=== PATIENT | female | born 1990 | race Caucasian/White ===

== ENCOUNTER 2019-02-28 03:02 | Emergency (ER) | payer OTHER ==
[~2019-02-28] VITALS: Ht 160 cm; Wt 67.1 kg
[~2019-02-28 03:02] MED LIST: ACHD5005 PO; CEFU250S PO; DCS100C PO; IBP600T1 PO; LORA-404 PO; OMEP-10 PO; ONDN4T PO; PREN1TAB39 PO; ZLP10T PO
[2019-02-28] MEDS ORDERED: NS IV 1000 ML 1,000 ML IV ONE (03:38)
[2019-02-28 03:49] LABS: BASOPHILS % (AUTO) 0 % (0-10); EOSINOPHILS # (AUTO) 0.1 10^3/uL (0.0-0.3); EOSINOPHILS % (AUTO) 2 % (0-10); HEMATOCRIT 40 % (35-52); HEMOGLOBIN 13.3 G/DL (11.5-16.0); LYMPHOCYTES # (AUTO) 1.5 X 10^3 (1.0-4.0); LYMPHOCYTES % (AUTO) 28 % (12-44); MEAN CORPUSCULAR HEMOGLOBIN 28 PG (25-34); MEAN CORPUSCULAR HGB CONC 33 G/DL (32-36); MEAN CORPUSCULAR VOLUME 85 FL (80-99); MEAN PLATELET VOLUME 10.3 FL (7.4-10.4); MONOCYTES # (AUTO) 0.8 X 10^3 (0.0-1.0); MONOCYTES % (AUTO) 15 % (0-12); NEUTROPHILS # (AUTO) 2.9 X 10^3 (1.8-7.8); NEUTROPHILS % (AUTO) 55 % (42-75); PLATELET COUNT 182 10^3/uL (130-400); RED CELL DISTRIBUTION WIDTH 13.2 % (10.0-14.5); WHITE BLOOD COUNT 5.3 10^3/uL (4.3-11.0)
[2019-02-28 04:11] LABS: ALANINE AMINOTRANSFERASE 63 U/L (0-55); ALBUMIN 4.5 GM/DL (3.2-4.5); ALKALINE PHOSPHATASE 67 U/L (40-136); BILIRUBIN,TOTAL 0.2 MG/DL (0.1-1.0); BUN/CREATININE RATIO 12; CALCIUM 8.8 MG/DL (8.5-10.1); CARBON DIOXIDE 22 MMOL/L (21-32); CHLORIDE 107 MMOL/L (98-107); CREATININE SERUM 0.78 MG/DL (0.60-1.30); GFR ESTIMATED > 60; GLUCOSE 81 MG/DL (70-105); POTASSIUM 3.8 MMOL/L (3.6-5.0); SODIUM 140 MMOL/L (135-145); TOTAL PROTEIN 7.3 GM/DL (6.4-8.2)
[2019-02-28] MEDS ORDERED: KETOROLAC 30 MG/ML VIAL IVP ONE (05:15)
[2019-02-28] MEDS ORDERED: OSLT75C PO (05:15)
--- NOTE | 2019-02-28 05:16 | ED General ---
General Chief Complaint: Cough/Cold/Flu Symptoms Stated Complaint: COUGH,RUNNY NOSE,CONGESTION,SORE THROAT,EAR PAIN, Nursing Triage Note: C/O COUGH, RUNNY NOSE, SORE THROAT, COMGESTION, EAR PAIN SINCE YESTERDAY, DAUGHTER WAS DIAGNOSED WITH FLU B TWO DAYS AGO Nursing Sepsis Screen: No Definite Risk Source of Information: Patient Exam Limitations: No Limitations History of Present Illness Date Seen by Provider: Feb 28, 2019 Time Seen by Provider: 03:31 Initial Comments This 28-year-old young lady presents to the emergency room with 2 days of cough, runny nose, sore throat, congestion, and ear pain. Her daughter was diagnosed with influenza B 2 days ago. She would like to be assessed. She drank some alcohol to try to help with the symptoms. Allergies and Home Medications Allergies Coded Allergies: acetaminophen (Verified Allergy, Mild, 10/17/15) codeine (Verified Allergy, Mild, HIVES, 11/27/11) oxycodone (Verified Allergy, Mild, 10/17/15) Home Medications Cefuroxime Axetil 250 Mg/5 Ml Susp.recon, 250 MG PO BID Prescribed by: CLEMENTE GARCIA on 10/17/15411 Docusate Sodium 100 Mg Capsule, 100 MG PO BID, (Reported) Hydrocodone Bit/Acetaminophen 1 Each Tablet, 1 EACH PO Q 4 hours, (Reported) Ibuprofen 600 Mg Tab, 600 MG PO Q 6-8 hours PRN, (Reported) As needed for cramps. Lorazepam 0.5 Mg Tablet, 0.5 MG PO HS PRN for sleep Prescribed by: CLEMENTE GARCIA on 10/17/15 041 Oseltamivir Phosphate 75 Mg Cap, 75 MG PO BID Prescribed by: YIN JENKINS on 02/28/19 0515 Vits W-Ca,Fe,Fa(<1MG) 1 Each Tablet, 1 EACH PO DAILY, (Reported) Zolpidem Tartrate 10 Mg Tab, 10 MG PO HS, (Reported) Patient Home Medication List Home Medication List Reviewed: Yes Review of Systems Review of Systems Constitutional: see HPI EENTM: see HPI Respiratory: see HPI Cardiovascular: see HPI (tachycardia) Gastrointestinal: no symptoms reported Genitourinary: no symptoms reported : No Musculoskeletal: muscle pain Skin: no symptoms reported Psychiatric/Neurological: Headache Hematologic/Lymphatic: No Symptoms Reported Immunological/Allergic: no symptoms reported Past Dheyxrb-Vzietc-Uxbnqn Hx Past Med/Social Hx: Reviewed Nursing Past Med/Soc Hx Patient Social History Alcohol Use: Occasionally Uses Number of Drinks Today: 4 Alcohol Beverage of Choice: Beer Recreational Drug Use: No 2nd Hand Smoke Exposure: No Recent Foreign Travel: No Contact w/Someone Who Travel: No Recent Infectious Disease Expo: No Recent Hopitalizations: No Physical Abuse: No Sexual Abuse: No Mistreated: No Fear: No Past Medical History Surgeries: Yes Adenoidectomy, Tonsillectomy Respiratory: No Cardiac: No Neurological: No : No Last Menstrual Period: Jan 30, 2019 Reproductive Disorders: No Sexually Transmitted Disease: No Genitourinary: No Gastrointestinal: No Musculoskeletal: No Endocrine: No HEENT: No Cancer: No Psychosocial: No Integumentary: No Blood Disorders: Yes (anemia) Family Medical History No Pertinent Family Hx Physical Exam Vital Signs Vital Signs - First Documented 02/28/19 03:15 Temp 36.8 Pulse 120 Resp 20 B/P (MAP) 148/98 (115) Pulse Ox 100 O2 Delivery Room Air Capillary Refill : Less Than 3 Seconds Height, Weight, BMI Height: 5'6" Weight: 121lbs. oz. 54.145686vu; 26.00 BMI Method:Stated General Appearance: No Apparent Distress, WD/WN HEENT: PERRL/EOMI, TMs Normal, Normal ENT Inspection, Pharynx Normal Neck: Normal Inspection Respiratory: Lungs Clear, Normal Breath Sounds, No Accessory Muscle Use, No Respiratory Distress Cardiovascular: No Edema, No Murmur, Tachycardia Extremity: Normal Inspection, No Pedal Edema Neurologic/Psychiatric: Alert, Oriented x3, No Motor/Sensory Deficits, Normal Mood/Affect, online marketing coordinator II-XII Norm as Tested Skin: Normal Color, Warm/Dry Progress/Results/Core Measures Suspected Sepsis Recent Fever Within 48 Hours: No Infection Criteria Present: Suspected New Infection New/Unexplained Altered Menta: No Sepsis Screen: No Definite Risk SIRS Temperature: Pulse: 120 Respiratory Rate: 20 Laboratory Tests 02/28/19 03:35: White Blood Count 5.3 Blood Pressure 148 /98 Mean: 115 Laboratory Tests 02/28/19 03:35: Creatinine 0.78, Platelet Count 182, Total Bilirubin 0.2 Results/Orders Lab Results Laboratory Tests Test 02/28/19 03:35 Range/Units White Blood Count 5.3 4.3-11.0 10^3/uL Red Blood Count 4.73 4.35-5.85 10^6/uL Hemoglobin 13.3 11.5-16.0 G/DL Hematocrit 40 35-52 % Mean Corpuscular Volume 85 80-99 FL Mean Corpuscular Hemoglobin 28 25-34 PG Mean Corpuscular Hemoglobin Concent 33 32-36 G/DL Red Cell Distribution Width 13.2 10.0-14.5 % Platelet Count 182 130-400 10^3/uL Mean Platelet Volume 10.3 7.4-10.4 FL Neutrophils (%) (Auto) 55 42-75 % Lymphocytes (%) (Auto) 28 12-44 % Monocytes (%) (Auto) 15 H 0-12 % Eosinophils (%) (Auto) 2 0-10 % Basophils (%) (Auto) 0 0-10 % Neutrophils # (Auto) 2.9 1.8-7.8 X 10^3 Lymphocytes # (Auto) 1.5 1.0-4.0 X 10^3 Monocytes # (Auto) 0.8 0.0-1.0 X 10^3 Eosinophils # (Auto) 0.1 0.0-0.3 10^3/uL Basophils # (Auto) 0.0 0.0-0.1 10^3/uL Sodium Level 140 135-145 MMOL/L Potassium Level 3.8 3.6-5.0 MMOL/L Chloride Level 107 98-107 MMOL/L Carbon Dioxide Level 22 21-32 MMOL/L Anion Gap 11 5-14 MMOL/L Blood Urea Nitrogen 9 7-18 MG/DL Creatinine 0.78 0.60-1.30 MG/DL Estimat Glomerular Filtration Rate > 60 BUN/Creatinine Ratio 12 Glucose Level 81 70-105 MG/DL Calcium Level 8.8 8.5-10.1 MG/DL Corrected Calcium 8.4 L 8.5-10.1 MG/DL Total Bilirubin 0.2 0.1-1.0 MG/DL Aspartate Amino Transf (AST/SGOT) 41 H 5-34 U/L Alanine Aminotransferase (ALT/SGPT) 63 H 0-55 U/L Alkaline Phosphatase 67 40-136 U/L Total Protein 7.3 6.4-8.2 GM/DL Albumin 4.5 3.2-4.5 GM/DL Serum Test, Qualitative NEGATIVE NEGATIVE Serum Alcohol 19 H <10 MG/DL Micro Results Microbiology 02/28/19 Influenza Types A,B Antigen ([facility]) - Final, Complete My Orders Orders - YIN SUNSHINE MD Influenza A And B Antigens (02/28/19 03:31) Ns Iv 1000 Ml (Sodium Chloride 0.9%) (02/28/19 03:38) Alcohol (02/28/19 03:38) Cbc With Automated Diff (02/28/19 03:38) Comprehensive Metabolic Panel (02/28/19 03:38) Hcg,Qualitative Serum (02/28/19 03:38) Ketorolac Injection (Toradol Injection) (02/28/19 05:15) Medications Given in ED Vital Signs/I&O Capillary Refill : Less Than 3 Seconds Blood Pressure Mean: 115 Progress Note : Progress Note Patient tested positive for influenza B. IV fluids were administered due to tachycardia. Patient was offered Tamiflu but declined. She requested a prescription instead. Toradol was given for pain. Departure Impression Primary Impression: Influenza B Disposition: 01 HOME, SELF-CARE Condition: Improved Departure-Patient Inst. Decision time for Depature: 05:10 Referrals: JERRI ISAACS MD (PCP/Family) Primary Care Physician Patient Instructions: Flu, Adult (DC) Add. Discharge Instructions: Start Tamiflu as soon as possible and complete the entire 10 doses. Drink plenty of clear liquids. You may take Tylenol (acetaminophen) up to 1000 mg every 6 hours as needed and ibuprofen up to 600 mg every 6 hours as needed. Return to care if you have worsening symptoms. All discharge instructions reviewed with patient and/or family. Voiced understanding. Scripts Oseltamivir Phosphate (Tamiflu) 75 Mg Cap 75 MG PO BID, #10 CAP Prov: YIN SUNSHINE MD 02/28/19 YIN SUNSHINE MD Feb 28, 2019 05:16
[2019-02-28 05:17] VITALS: BP 129/89
== END 2019-02-28 05:26 | disposition home or self-care (01) ==
LOC: EDUNIT# 03:02 → ER 03:10
DX: J10.1 Influenza due to other identified influenza virus with other respiratory manifestations (principal); D64.9 Anemia, unspecified; Z88.6 Allergy status to analgesic agent; Z88.5 Allergy status to narcotic agent; Z90.89 Acquired absence of other organs; Z90.49 Acquired absence of other specified parts of digestive tract
CPT/HCPCS: 36415; 80053; 80320; 84703; 85025; 87804; 96374

== ENCOUNTER 2019-03-06 15:32 | Emergency (ER) | payer OTHER ==
[~2019-03-06] VITALS: Ht 160 cm; Wt 70.5 kg
[~2019-03-06 15:32] MED LIST changes: +OSLT75C PO
[2019-03-06] MEDS ORDERED: AZIT250T12 (15:40)
--- NOTE | 2019-03-06 15:43 | NUR ---
PT BECAME MORE ANXIOUS THE MORE I TALKED WITH HER. PT PLACED IN FT1 ET COOL CLOTH APPLIED TO HEAD.
[2019-03-06] MEDS ORDERED: MECLIZINE 25 MG (ANTIVERT) TAB PO ONE (15:45)
--- NOTE | 2019-03-06 15:52 | ED General ---
General Chief Complaint: Dizziness/Syncope Stated Complaint: DIZZINESS Nursing Triage Note: ARRIVED VIA AMB TO TRIAGE WITH COMPLAINTS OF DIZZINESS AND BEING LIGHT HEADED FOR 45 MINS. STATES HER HEAD FILLS FULL. JUST GOT OVER THE FLU AND IS ON A ABX FOR BRONCHITIS. Nursing Sepsis Screen: No Definite Risk Source of Information: Patient Exam Limitations: No Limitations History of Present Illness Date Seen by Provider: Mar 06, 2019 Time Seen by Provider: 15:50 Initial Comments ER per private vehicle with reports of dizziness and lightheaded for 45 minutes. States that her head feels full and with pressure. She is currently on antibiotics, states she was diagnosed with influenza B last week with associated bronchitis. She's had nasal drainage and congestion. This dizziness began suddenly onset about 15 minutes ago while at rest. She feels very anxious. She denies head pain just states that it feels "like pressure". Timing/Duration: 1-2 Days Severity: Moderate Associated Systoms: Nausea/Vomiting Allergies and Home Medications Allergies Coded Allergies: acetaminophen (Verified Allergy, Mild, 10/17/15) codeine (Verified Allergy, Mild, HIVES, 11/27/11) oxycodone (Verified Allergy, Mild, 10/17/15) Patient Home Medication List Home Medication List Reviewed: Yes Review of Systems Review of Systems Constitutional: see HPI; No chills, No fever Respiratory: see HPI, cough Cardiovascular: no symptoms reported Genitourinary: no symptoms reported Musculoskeletal: no symptoms reported Skin: no symptoms reported Psychiatric/Neurological: No Symptoms Reported Hematologic/Lymphatic: No Symptoms Reported Past Dbvybpi-Nwxeyw-Rnjnkr Hx Patient Social History Alcohol Use: Occasionally Uses Alcohol Beverage of Choice: Beer Recreational Drug Use: No Smoking Status: Never a Smoker 2nd Hand Smoke Exposure: No Recent Foreign Travel: No Contact w/Someone Who Travel: No Recent Infectious Disease Expo: No Recent Hopitalizations: No Past Medical History Surgeries: Yes Adenoidectomy, Tonsillectomy Respiratory: No Cardiac: No Neurological: No Last Menstrual Period: Feb 04, 2019 Reproductive Disorders: No Sexually Transmitted Disease: No Genitourinary: No Gastrointestinal: No Musculoskeletal: No Endocrine: No HEENT: No Cancer: No Psychosocial: No Integumentary: No Blood Disorders: Yes (anemia) Family Medical History No Pertinent Family Hx Physical Exam Vital Signs Vital Signs - First Documented 03/06/19 15:36 Temp 36.7 Pulse 128 Resp 18 B/P (MAP) 151/92 (111) Pulse Ox 100 O2 Delivery Room Air Capillary Refill : Less Than 3 Seconds Height, Weight, BMI Height: 5'6" Weight: 121lbs. oz. 54.625308tu; 27.00 BMI Method:Stated General Appearance: No Apparent Distress, WD/WN, Anxious Eyes: Bilateral Eye Normal Inspection, Bilateral Eye PERRL, Bilateral Eye EOMI HEENT: TM Abnormal (R) (bulging) Respiratory: No Accessory Muscle Use, No Respiratory Distress Cardiovascular: Regular Rate, Rhythm, Normal Peripheral Pulses Gastrointestinal: Normal Bowel Sounds, Non Tender, Soft Extremity: Normal Capillary Refill, Normal Inspection Neurologic/Psychiatric: Alert, Oriented x3 Skin: Normal Color, Warm/Dry Progress/Results/Core Measures Suspected Sepsis Recent Fever Within 48 Hours: No Infection Criteria Present: None New/Unexplained Altered Menta: No Sepsis Screen: No Definite Risk SIRS Temperature: Pulse: 128 Respiratory Rate: 18 Blood Pressure 151 /92 Mean: 111 Results/Orders My Orders Orders - EMILI GARRETT APRN Meclizine Tablet (Antivert Tablet) (03/06/19 15:45) Ct Head Wo (03/06/19 15:45) Medications Given in ED Current Medications Medications Dose Ordered Sig/Kourtney Route Start Time Stop Time Status Last Admin Dose Admin Meclizine HCl 25 mg ONCE ONCE PO 03/06/19 15:45 03/06/19 15:46 DC 03/06/19 15:49 25 MG Vital Signs/I&O 03/06/19 15:36 Temp 36.7 Pulse 128 Resp 18 B/P (MAP) 151/92 (111) Pulse Ox 100 O2 Delivery Room Air Capillary Refill : Less Than 3 Seconds Blood Pressure Mean: 111 Departure Impression Primary Impression: Anxiety Additional Impressions: Headache Qualified Codes: R51 - Headache Maxillary sinusitis Qualified Codes: J01.00 - Acute maxillary sinusitis, unspecified Disposition: HOME, SELF-CARE Condition: Improved Departure-Patient Inst. Decision time for Depature: 16:27 Referrals: JERRI ISAACS MD (PCP/Family) Primary Care Physician Patient Instructions: Sinusitis in Adults Add. Discharge Instructions: Tylenol and Motrin for headache 2. You can use your hydroxyzine one half tablet as needed for anxiety, stop the azithromycin and start the amoxicillin. All discharge instructions reviewed with patient and/or family. Voiced understanding. Scripts Amoxicillin/Potassium Clav (Augmentin 495-125 Tablet) 1 Each Tablet 1 EACH PO BID, #14 TAB 0 Refills Prov: EMILI GARRETT APRN 03/06/19 EMILI GARRETT APRN Mar 06, 2019 15:52
--- NOTE | 2019-03-06 16:16 | Diagnostic Imaging Report ---
INDICATION: Dizziness. EXAMINATION: Noncontrast brain CT performed and compared to 11/27/2007. TECHNIQUE: Multiple contiguous axial images were obtained through the brain without the use of intravenous contrast. Auto Exposure Controls were utilized during the CT exam to meet ALARA standards for radiation dose reduction. All CT scans use one or more of the following dose optimizing techniques: automated exposure control, MA and/or KvP adjustment based on patient size and exam type or iterative reconstruction. FINDINGS: There are no extra-axial fluid collections. No intracranial hemorrhage. No intracranial mass or mass effect. No midline shift. The ventricles are normal in size and position. There are no focal parenchymal abnormalities in the brain. Calvarial windows show no bony abnormality. Visualized portions of the mastoid air cells are well aerated. There is a prominent fluid level in the right maxillary sinus. Remaining visualized sinuses are clear. IMPRESSION: No acute intracranial abnormality. Prominent fluid level in right maxillary sinus is noted. Dictated by: Dictated on workstation # [id number]
--- NOTE | 2019-03-06 16:23 | NUR ---
EMILI IN TALKING TO PT AT THIS TIME.
[2019-03-06] MEDS ORDERED: AMOX-358 PO (16:28)
[2019-03-06 16:38] VITALS: BP 151/92
== END 2019-03-06 16:37 | disposition home or self-care (01) ==
LOC: ER 15:32 → EDUNIT# 15:32 → ER 16:37
DX: J32.0 Chronic maxillary sinusitis (principal); F41.9 Anxiety disorder, unspecified; Z88.5 Allergy status to narcotic agent; Z90.89 Acquired absence of other organs
CPT/HCPCS: 70450